=== PATIENT | female | born 1945 | race Two or more races ===

== ENCOUNTER 2018-08-20 10:00 | Outpatient (CLI) | payer OTHER ==
[~2018-08-20 10:00] MED LIST: LISINOPRIL20 MG PO; PROTEIN975 MG PO
== END 2018-08-20 14:47 | disposition home or self-care (01) ==
LOC: RAD 10:00
DX: M25.562 Pain in left knee (principal); M23.92 Unspecified internal derangement of left knee

== ENCOUNTER 2018-08-27 09:12 | Outpatient (CLI) | payer OTHER | END 2018-08-27 12:01 | disposition home or self-care (01) | LOC: LAB 09:12 | DX: D64.89 Other specified anemias (principal); D68.8 Other specified coagulation defects; E88.89 Other specified metabolic disorders; N03.9 Chronic nephritic syndrome with unspecified morphologic changes; Z22.322 Carrier or suspected carrier of Methicillin resistant Staphylococcus aureus; E55.9 Vitamin D deficiency, unspecified; I49.8 Other specified cardiac arrhythmias ==

== ENCOUNTER 2018-08-27 15:30 | Inpatient (IN) | payer OTHER ==
[~2018-08-27] VITALS: Ht 154.9 cm; Wt 69.9 kg
[2018-09-07] MEDS ORDERED: MULTIVITAMINS1 EAC9 PO (12:58)
[2018-09-07] MEDS ORDERED: CALCIUM500 M1 PO (12:59)
== END 2018-09-17 14:32 | DRG 470 ==
LOC: SURH 09-01 14:22 → O/R 09-14 05:45 → SURH 09-14 07:00 → SURG 09-14 12:02
PROVIDERS: ADMIT Orthopaedic Surgery
PROC: 0PSH04Z Reposition Right Radius with Internal Fixation Device, Open Approach (ICD-10-PCS; 2018-09-14)
PROC: 0SRD0J9 Replacement of Left Knee Joint with Synthetic Substitute, Cemented, Open Approach (ICD-10-PCS; principal; 2018-09-14 07:00)
DX: M17.12 Unilateral primary osteoarthritis, left knee (principal); S52.591A Other fractures of lower end of right radius, initial encounter for closed fracture; X58.XXXA Exposure to other specified factors, initial encounter; I10 Essential (primary) hypertension

== ENCOUNTER → 2018-10-01 | Outpatient (CLI) | payer OTHER ==
[~2018-10-01] MED LIST changes: +CALCIUM500 M1 PO; +MULTIVITAMINS1 EAC9 PO
== END | disposition home or self-care (01) ==
LOC: NUCLEAR 15:40
DX: I80.292 Phlebitis and thrombophlebitis of other deep vessels of left lower extremity (principal)